=== PATIENT | female | born 1950 | race Caucasian/White ===

== ENCOUNTER 2020-01-14 02:47 | Emergency (ER) | payer MEDICARE, OTHER, SELFPAY ==
--- NOTE | ~2020-01-14 | CT_ITS ---
EXAMINATION: CTA chest PE protocol DATE: 01/14/2020 04:00 INDICATION: Shortness of breath and cough TECHNIQUE: Computed tomography angiography (CTA) of the chest was performed with 100 mL Omnipaque-350 intravenous contrast timed to evaluate the pulmonary arteries. Coronal maximum intensity projection 3D-reconstructions were created by the technologist. The dose-length product (DLP) was 437.38 mGy-cm. Automated exposure control and iterative reconstruction technique were employed. COMPARISON: None. FINDINGS: The pulmonary arteries are moderately well-opacified. No pulmonary embolism is identified. There are subpleural groundglass opacities with a mid and lower lung zone predominance. No pleural ef fusion or pneumothorax is identified. The heart size is normal. There is mild bilateral hilar and med iastinal lymphadenopathy. There is severe thoracic spondylosis. The gallbladder is surgically absent. IMPRESSION: 1.No pulmonary embolism identified. 2. Commonly reported imaging features of COVID-19 pneumonia are present. Reviewed, dictated and finalized at location A.
[2020-01-14 02:52] VITALS: BP 147/83; PULSE 102; RESP 18; TEMP 36.7; O2SAT 100
--- NOTE | 2020-01-14 02:55 | ECG_ITS ---
Measurements Intervals [place] Rate: 105 P: 48 RI: 182 QRS: 1 QRSD: 108 T: 20 QT: 347 QTc: 460 Interpretive Statements SINUS TACHYCARDIA LOW QRS VOLTAGE IN PRECORDIAL LEADS INCOMPLETE RIGHT BUNDLE BRANCH BLOCK BASELINE WANDER- I, II, AVR, AVL, AVF ABNORMAL ECG Electronically Signed On 01-14-2020 6:57:05 CDT by Mo Neff D.O.
--- NOTE | 2020-01-14 03:01 | ED.SOB ---
HPI - SOB/Dyspnea General Chief Complaint: Shortness of Breath/Dyspnea Stated Complaint: resp difficulty Source: patient Mode of arrival: EMS Limitations: no limitations History of Present Illness HPI Narrative: This patient is 69 year old female with history of fibromyalgia, chronic bronchitis who presents for evaluation of shortness of breath. She reports she started feeling unwell in November after her cat sneezed on her. She developed dry cough, wheezing and sob. She was evaluated out of town because he symptoms worsened. She states she was given a Z brad. She reports over the past few days she has developed worsening shortness. She reports she has pain all over and her lungs hurt . She denies fever or chills. She has been using her inhaler and nebulizer without improvement of her symptoms. She was evaluated at [facility] yesterday. She had a chest xray that showed bilateral pneumonia so she was tested for covid and started on doxycycline. Related Data Home Medications Medication Instructions Recorded Confirmed duloxetine [Cymbalta] 60 mg PO BID 01/14/20 lansoprazole [Prevacid] 30 mg PO BID 01/14/20 melatonin 5 mg PO HS PRN 01/14/20 pregabalin [Lyrica] 150 mg PO BID 01/14/20 valacyclovir [Valtrex] 1,000 mg PO Q12H 01/14/20 Allergies Allergy/AdvReac Type Severity Reaction Status Date / Time diazepam Allergy Dizziness Verified 01/14/20 03:02 latex Allergy Rash Verified 01/14/20 03:02 PROPOXYPHENE HCL Allergy Unknown Uncoded 01/14/20 03:02 Review of Systems Review of Systems: All systems reviewed & are unremarkable except as noted in HPI and below Constitutional: Constitutional: Denies chills, Reports fatigue and Denies fever(s) ENT: Denies sore throat Cardiovascular: Cardiovascular: Reports chest pain and Denies radiating jaw, neck or arm pain Respiratory: Respiratory: Reports cough, Reports dyspnea and Reports wheezing Gastrointestinal: Gastrointestinal: Denies abdominal pain, Reports diarrhea (chronic) and Denies nausea Musculoskeletal: Musculoskeletal: Reports myalgias Neurologic: Denies headache(s), Denies focal weakness, Denies numbness and Reports weakness PMFSH Past Medical History Medical History History of depression History of fibromyalgia History of gastroesophageal reflux (GERD) Surgical History Surgical History (Updated 05/17/19 @ 17:17 by Martina Arias PA-C) History of appendectomy History of hysterectomy Social History Social History (Updated 01/14/20 @ 03:02 by Liset Benjamin MD) Smoking status: Never smoker Exam Narrative: Exam Narrative: GENERAL: Well-appearing, well-nourished, and in no acute distress. HEAD: Normocephalic, atraumatic EYES: PERRLA and EOMI, conjunctiva clear without discharge EARS: TM's clear bilaterally without erythema or dullness NOSE: Nares clear, no rhinorrhea or epistaxis THROAT:Mucous membranes moist, Oropharynx normal without erythema, exudate, peritonsillar swelling or fluctuance NECK: Supple, without lymphadenopathy or mass RESPIRATORY: No respiratory distress, Airway patent, Respirations non-labored, Clear to auscultation without rales, rhonchi or wheeze HEART: Regular rate and rhythm. No murmur heard. Normal peripheral pulses. ABDOMEN: Soft, epigastric, nondistended, normal active bowel sounds. No masses. No rebound or guarding, No organomegaly. EXTREMITIES: No edema, normal strength with full range of motion. SKIN: Warm, dry, normal color without rash NEURO: Alert and oriented x3. CN 2-12 grossly intact. No focal deficits. PSYCH: Normal mood and affect. Course Reevaluation(s) Reevaluation #1: I Discussed with patient that CT shows shows signs that she has viral pneumonia(COVID). She was able to walk around nursing station with oxygen saturation 96% on room air. I Discussed with patient option of observation vs outpatient. She reports she has nebulizer and
[2020-01-14 03:18] LABS: Basophils Percent Auto 0.5 % (0.2-1.2); Eosinophils Absolute Auto 0.1 K/mm3 (0-0.3); Hematocrit 38.1 % (37.0-47.0); Hemoglobin 12.6 g/dL (12.0-15.0); Immature Granulocyte Absolute 0.01 K/mm3 (0.00-0.031); Immature Granulocyte Percent A 0.2 % (0-0.5); Lymphocytes Absolute Auto 1.14 K/mm3 (0.9-3.2); Lymphocytes Percent Auto 18.9 % (18.3-44.2); Mean Corpuscular HGB Conc 33.1 g/dl (32-36); Mean Corpuscular Hemoglobin 28.4 pg (26-34); Mean Corpuscular Volume 85.8 fl (80-100); Mean Platelet Volume 10.8 fl (7.4-10.4); Monocytes Absolute Auto 0.4 K/mm3 (0.1-0.6); Monocytes Percent Auto 6.1 % (2.6-8.5); Neutrophils Absolute Auto 4.4 K/mm3 (1.3-6.7); Neutrophils Percent Auto 72.3 % (45.5-73.1); Platelet Count Result 248 k/mm3 (150-375); Red Blood Count 4.44 M/mm3 (4.2-5.4); Red Cell Distribution Width 12.4 % (11.5-14.5)
[2020-01-14 03:28] LABS: Prothrombin Time 12.5 Seconds (11.1-14.7)
[2020-01-14 03:28] LABS: Alveolar/Arterial O2 Gradient 41.6 mmHg; Base Excess ABG 3.3 mEq/l (+/-2.0); Carboxyhemoglobin 0.4 % THb (0-2.0); Device ROOM AIR; Fractional Inspired Oxygen 21 %; HCO3 ABG 26.4 mEq/l (22.0-26.0); Methemoglobin ABG 0.3 %THb (0-1.5); Modified Allen's Test Pass; Oxygen Content ABG 16.7 %vol (16.0-22.0); Oxygen Saturation ABG 94.7 % (95.0-100.0); Oxyhemoglobin 92.6 % THb (90.0-100.0); PCO2 ABG 34.9 mmHg (35.0-45.0); PO2 ABG 66.3 mmHg (80.0-100.0); PO2 FiO2 Ratio Arterial Blood 3.16 %; Reduced Hemoglobin 6.7 %THb (0-5.0); Site Drawn LEFT RADIAL; Total Hemoglobin 12.8 g/dL (12.0-18.0); pH ABG 7.496 (7.350-7.450)
[2020-01-14 03:29] LABS: Partial Thromboplastin Time 27.5 SECONDS (22.3-36.8)
[2020-01-14 03:31] LABS: D Dimer 0.72 ug/mL (<0.48)
[2020-01-14 03:32] LABS: Lactic Acid Reflex 1.5 mmol/L (0.7-2.1)
[2020-01-14 03:33] LABS: Alanine Aminotransferase 29 U/L (4-35); Albumin Level 3.7 g/dL (3.5-5.1); Alkaline Phosphatase 134 U/L (38-126); Anion Gap 7 mmol/L (8-16); Aspartate Amino Transferase 24 U/L (14-36); Bilirubin,Total 0.6 mg/dL (0.2-1.3); Blood Urea Nitrogen 9 mg/dL (7-17); CRP 1.1 mg/dL (<1.0); Calcium 8.8 mg/dL (8.4-10.2); Carbon Dioxide 27 mmol/L (22-30); Chloride 105 mmol/L (98-107); Estimated Glomerular Filt Rate > 60; Glucose 165 mg/dL (65-105); Lipase 39 U/L (23-300); Magnesium 1.9 mg/dL (1.6-2.3); Potassium 3.3 mmol/L (3.4-5.0); Sodium 139 mmol/L (137-145)
[2020-01-14 03:43] LABS: NT Pro B Type Natriuretic Pept 312 PG/ML (5-100); Troponin I < 0.012 ng/mL (0.000-0.034)
[2020-01-14 04:04] VITALS: BP 162/100; PULSE 97; RESP 14; O2SAT 97
[2020-01-14 04:26] VITALS: BP 160/75; PULSE 94; RESP 16; O2SAT 97
--- NOTE | 2020-01-14 04:56 | PC.NURSE ---
pt walked with pulse-ox- 97%
[2020-01-14] MEDS: POTASSIUM CHLORIDE 20 MEQ TABLET PO (05:02)
[2020-01-14 05:04] VITALS: BP 127/52; PULSE 91; RESP 16; O2SAT 96
== END 2020-01-14 05:27 | disposition home or self-care (01) ==
PROVIDERS: Emergency Provider General Practice
DX: J12.89 Other viral pneumonia (principal); Z20.828 Contact with and (suspected) exposure to other viral communicable diseases; F32.9 Major depressive disorder, single episode, unspecified; M79.7 Fibromyalgia; K21.9 Gastro-esophageal reflux disease without esophagitis; R00.0 Tachycardia, unspecified; I45.10 Unspecified right bundle-branch block
CPT/HCPCS: 36415; 36600; 71275; 80053; 82375; 82805; 83050; 83605; 83690; 83735; 83880; 84484; 85025; 85380; 85610; 85730; 86140; 93005; 99284; A9270; Q9967

== ENCOUNTER 2020-01-22 18:51 | Emergency (ER) | payer MEDICARE, OTHER, SELFPAY ==
--- NOTE | ~2020-01-22 | XR_ITS ---
EXAMINATION: XR chest 1V portable DATE: 01/22/2020 20:05 INDICATION: Shortness of breath. COVID-19 positive. TECHNIQUE: A single frontal view of the chest was obtained. COMPARISON: Chest 2 views 10/08/2013, chest CT 01/14/2020 FINDINGS: There are mild peripheral airspace opacities in the lower and upper lung zones bilaterally. No pleural effusion or pneumothorax. The heart size is normal. IMPRESSION: 1. Mild peripheral airspace opacities in the lower and upper lung zones bilaterally, consistent with COVID-19 pneumonia. Reviewed, dictated and finalized at location A. IMPRESSION: 1. Mild peripheral airspace opacities in the lower and upper lung zones bilater ally, consistent with COVID-19 pneumonia.
[2020-01-22 18:55] VITALS: BP 111/93; PULSE 116; RESP 26; TEMP 36.1; O2SAT 100
--- NOTE | 2020-01-22 19:10 | ED.SOB ---
HPI - SOB/Dyspnea General Chief Complaint: Shortness of Breath/Dyspnea Stated Complaint: COVID increasing short of breath Time Seen by Provider: 01/22/20 19:10 History of Present Illness HPI Narrative: She has had cough, SOB, and fatigue since 01/12. At that time she had a positive test for COVID-19, She was sent home on prednisone for 5 days. She reports some improvement while on prednison, but symptoms returned once the prednisone was stopped. Today she was feeling very short of breath and checked her home pulse oximeter, which should saturation in the 80s and HR in 150s. SHe reports pain all over, this is her usual. No fever, calf swelling, syncope. Related Data Home Medications Medication Instructions Recorded Confirmed duloxetine [Cymbalta] 60 mg PO BID 01/14/20 lansoprazole [Prevacid] 30 mg PO BID 01/14/20 melatonin 5 mg PO HS PRN 01/14/20 pregabalin [Lyrica] 150 mg PO BID 01/14/20 valacyclovir [Valtrex] 1,000 mg PO Q12H 01/14/20 Allergies Allergy/AdvReac Type Severity Reaction Status Date / Time diazepam Allergy Dizziness Verified 01/22/20 19:46 latex Allergy Rash Verified 01/22/20 19:46 PROPOXYPHENE HCL Allergy Unknown Uncoded 01/22/20 19:46 Review of Systems Review of Systems: All systems reviewed & are unremarkable except as noted in HPI and below Constitutional: Constitutional: Denies chills, Reports fatigue, Denies fever(s) and Reports weakness ENT: Reports dizziness Cardiovascular: Cardiovascular: Reports chest pain Respiratory: Respiratory: Reports chest congestion, Reports cough and Reports dyspnea Gastrointestinal: Gastrointestinal: Reports abdominal pain, Reports diarrhea, Reports nausea and Reports vomiting Genitourinary: Genitourinary: Denies hematuria and Denies dysuria Integumentary/Breasts: Skin/Breast: Denies rash Neurologic: Reports dizziness, Denies syncope and Reports weakness PMFSH Past Medical History Medical History History of depression History of fibromyalgia History of gastroesophageal reflux (GERD) Surgical History Surgical History History of appendectomy History of hysterectomy Social History Social History Smoking status: Never smoker Exam Const: General: healthy appearing, no acute distress and alert Orientation/consciousness: patient oriented x3 HENMT: Head: normal to inspection Neck: Neck: normal visual inspection and no lymphadenopathy Chest: Chest palpation & inspection: no tenderness Resp: Effort & Inspection: normal respiratory effort Auscultation: clear to auscultation bilaterally, no rales, no rhonchi and no wheezes Cardio: Jugular venous distension: no JVD Rate: tachycardic Rhythm: regular rhythm Heart sounds: no murmurs GI: Inspection: non-distended GI Palp: Yes Soft to palpation and No Tenderness to palpation present (GI) Skin: General skin exam: normal color Neuro: General: patient oriented x3, moves all extremities, no focal motor deficits and CN's II-XI intact bilaterally Speech: normal speech Extrem: General: normal to inspection and no edema Psych: Appearance: well kempt Affect: Anxious affect present Course Vital Signs Vital signs: Vital Signs Temperature 36.1 C L 01/22/20 18:55 Pulse Rate 116 H 01/22/20 18:55 Respiratory Rate 26 H 01/22/20 18:55 Blood Pressure 111/93 H 01/22/20 18:55 Pulse Oximetry 100 01/22/20 18:55 Temperature 36.1 C L 01/22/20 18:55 Pulse Rate 99 01/22/20 21:51 Respiratory Rate 17 01/22/20 21:51 Blood Pressure 135/70 01/22/20 21:51 Pulse Oximetry 97 01/22/20 21:51 MDM - SOB/Dyspnea MDM Narrative Medical decision making narrative: Mild infiltrates on x-ray consistent with previous CT findings. Maintaining O2 saturation on trial of ambulation. No indication for admission or additional cortic
[2020-01-22 19:15] VITALS: BP 135/87; PULSE 118; RESP 17; O2SAT 100
--- NOTE | 2020-01-22 19:39 | ECG_ITS ---
Measurements Intervals [place] Rate: 107 P: 32 MD: 166 QRS: 10 QRSD: 89 T: 49 QT: 324 QTc: 434 Interpretive Statements SINUS TACHYCARDIA ABNORMAL ECG Electronically Signed On 01-23-2020 8:00:29 CDT by Mo Neff D.O.
[2020-01-22 20:22] VITALS: O2SAT 99
[2020-01-22] MEDS: SODIUM CHLORIDE 0.9% IV 1,000 ML 999 ML IV CONT (20:22)
[2020-01-22 20:31] LABS: Basophils Absolute Auto 0.1 K/mm3 (0.0-0.1); Basophils Percent Auto 0.9 % (0.2-1.2); Eosinophils Absolute Auto 0.2 K/mm3 (0-0.3); Eosinophils Percent Auto 2.7 % (0-4.4); Hematocrit 41.3 % (37.0-47.0); Hemoglobin 13.8 g/dL (12.0-15.0); Immature Granulocyte Absolute 0.02 K/mm3 (0.00-0.031); Immature Granulocyte Percent A 0.3 % (0-0.5); Lymphocytes Absolute Auto 1.48 K/mm3 (0.9-3.2); Lymphocytes Percent Auto 21.4 % (18.3-44.2); Mean Corpuscular HGB Conc 33.4 g/dl (32-36); Mean Corpuscular Hemoglobin 29.1 pg (26-34); Mean Corpuscular Volume 87.1 fl (80-100); Mean Platelet Volume 11.5 fl (7.4-10.4); Monocytes Absolute Auto 0.5 K/mm3 (0.1-0.6); Monocytes Percent Auto 6.9 % (2.6-8.5); Neutrophils Absolute Auto 4.7 K/mm3 (1.3-6.7); Neutrophils Percent Auto 67.8 % (45.5-73.1); Platelet Count Result 269 k/mm3 (150-375); Red Blood Count 4.74 M/mm3 (4.2-5.4); Red Cell Distribution Width 13.3 % (11.5-14.5); White Blood Count 6.9 K/mm3 (4.5-10.0)
[2020-01-22 20:40] LABS: Prothrombin Time 12.5 Seconds (11.1-14.7)
[2020-01-22 20:41] LABS: Partial Thromboplastin Time 26.8 SECONDS (22.3-36.8)
[2020-01-22 20:43] LABS: Anion Gap 5 mmol/L (8-16); Blood Urea Nitrogen 21 mg/dL (7-17); Calcium 8.7 mg/dL (8.4-10.2); Carbon Dioxide 27 mmol/L (22-30); Chloride 107 mmol/L (98-107); D Dimer 0.39 ug/mL (<0.48); Estimated CRCL calculation 62 ml/min; Estimated Glomerular Filt Rate > 60; Glucose 98 mg/dL (65-105); Potassium 3.7 mmol/L (3.4-5.0); Sodium 139 mmol/L (137-145)
[2020-01-22 20:53] LABS: Troponin I < 0.012 ng/mL (0.000-0.034)
[2020-01-22 21:51] VITALS: BP 135/70; PULSE 99; RESP 17; O2SAT 97
== END 2020-01-22 21:55 | disposition home or self-care (01) ==
PROVIDERS: Emergency Provider Emergency Medicine
DX: U07.1 COVID-19 (principal); R06.09 Other forms of dyspnea; F32.9 Major depressive disorder, single episode, unspecified; M79.7 Fibromyalgia; K21.9 Gastro-esophageal reflux disease without esophagitis; R00.0 Tachycardia, unspecified
CPT/HCPCS: 36415; 71045; 80048; 84484; 85025; 85380; 85610; 85730; 93005; 96360; 99284; J7030